=== PATIENT | female | born 1950 | race African-American/Black ===

== ENCOUNTER 2017-06-22 08:50 | Outpatient (CLI) | payer MEDICAID | END 2017-06-22 08:51 | disposition home or self-care (01) | LOC: BICULT 08:50 | PROVIDERS: ATTEND Internal Medicine Nephrology | DX: N18.9 Chronic kidney disease, unspecified (principal) | CPT/HCPCS: 76770 ==

== ENCOUNTER 2017-12-14 09:30 | Outpatient (CLI) | payer MEDICARE, OTHER | END 2017-12-14 09:31 | disposition home or self-care (01) | LOC: BICMAMMO 09:30 | PROVIDERS: ATTEND General Practice | DX: Z12.31 Encounter for screening mammogram for malignant neoplasm of breast (principal) | CPT/HCPCS: 77063; 77067 ==

== ENCOUNTER 2021-05-20 08:20 | Outpatient (CLI) | payer MEDICARE, MEDICAID | END 2021-05-20 08:21 | disposition home or self-care (01) | LOC: BICMAMMO 08:20 | PROVIDERS: ATTEND Family Medicine Sports Medicine | DX: Z12.31 Encounter for screening mammogram for malignant neoplasm of breast (principal); R92.1 Mammographic calcification found on diagnostic imaging of breast | CPT/HCPCS: 77063; 77067 ==

== ENCOUNTER 2021-05-27 09:38 | Outpatient (CLI) | payer MEDICARE, MEDICAID | END 2021-05-27 09:39 | disposition home or self-care (01) | LOC: BICMAMMO 09:38 | PROVIDERS: ATTEND Family Medicine Sports Medicine | DX: R92.1 Mammographic calcification found on diagnostic imaging of breast (principal) | CPT/HCPCS: 77065; G0279 ==

== ENCOUNTER 2021-06-03 13:35 | Outpatient (CLI) | payer MEDICARE, MEDICAID ==
[2021-06-03 15:28] LABS: Bilirubin Neg (Negative); Blood, Urine Negative (Negative); Clarity Clear (Clear); Glucose, Urine (Dipstick) >=1000 mg/dL (Negative); Ketone, Urine Negative (Negative); Leukocyte Negative (Negative); Nitrite Negative (Negative); Protein, Urine (Dipstick) 15 mg/dl (Neg-Trace); Urobilinogen Normal mg/dL (Less than 2); pH, Urine 6.5 (5.0-9.0)
[2021-06-03 15:29] LABS: Hemoglobin 12.1 g/dL (12.0-15.5); Mean Corpuscular HGB CONC 31.3 g/dL (32.0-36.0); Mean Corpuscular Hemoglobin 26.7 pg (27.0-33.0); Mean Corpuscular Volume 85.2 fl (81.6-98.3); Mean Platelet Volume 11.5 fl (7.4-10.4); Platelet Count 172 10x3/uL (150-450); RBC Distribution Width 13.9 % (11.5-14.5); Red Blood Cell (RBC) Count 4.53 10x6/uL (3.90-5.03)
[2021-06-03 15:39] LABS: MDiff Complete? YES; Manual Diff?? YES
[2021-06-03 15:46] LABS: INR-International Normal Ratio 0.9; Prothrombin Time 10.4 sec (9.5-12.1)
[2021-06-03 16:00] LABS: Anion Gap 14 mmol/L (10-20); BUN (Urea Nitrogen) 23 mg/dL (9.8-20.1); Calc. Creatinine Clearance 0 mL/min (70-130); Calcium 10.5 mg/dL (7.8-10.44); Carbon Dioxide 27 mmol/L (23-31); Chloride 108 mmol/L (98-107); Glucose 104 mg/dL (83-110); Potassium 4.9 mmol/L (3.5-5.1); Sodium 144 mmol/L (136-145)
[2021-06-03 17:07] LABS: Band 1 % (5-11); Eosinophils 1 % (0-10); Lymphocytes 42 % (21-51); Monocytes 17 % (0-10); Neutrophil 31 % (42-75); Reactive Lymphocytes 8 % (0-10)
[2021-06-04 12:05] LABS: SARS-CoV-2 PCR by NAA Not Detected (NotDetected)
== END 2021-06-03 13:36 | disposition home or self-care (01) ==
LOC: LABBT 13:35
PROVIDERS: ATTEND Orthopaedic Surgery
DX: Z01.818 Encounter for other preprocedural examination (principal); M17.12 Unilateral primary osteoarthritis, left knee; Z20.822 Contact with and (suspected) exposure to COVID-19
CPT/HCPCS: 80048; 81003; 85025; 85610; 87081; U0003; U0005; 93005; 93010

== ENCOUNTER 2021-06-08 08:11 | Inpatient (IN) | payer MEDICARE, MEDICAID ==
[2021-06-04 13:38] VITALS: BMI 36.7
[2021-06-08] MEDS ORDERED: Sodium Chloride 0.9% 100 ML ONE (09:45)
[2021-06-08] MEDS ORDERED: ceFAZolin 2 GM/DEX 5% 100 ML BAG ONE (09:45)
[2021-06-08] MEDS ORDERED: Tranexamic Acid 1,000 MG/10 ML VIAL ONE (09:45)
[2021-06-08] MEDS ORDERED: Vancomycin HCl 1.5 GM in Sodium Chloride 0.9% 250 ML 300 ML IVPB SCH (10:00)
[2021-06-08] MEDS ORDERED: Fentanyl 100 MCG/2 ML VIAL ONE ×6 (10:43→16:00)
[2021-06-08] MEDS ORDERED: Midazolam HCl 2 mg/2 ml Vial ONE (10:43)
[2021-06-08] MEDS ORDERED: Fentanyl 100 MCG/2 ML VIAL SLOW IVP PRN ×2 (11:10→11:22)
[2021-06-08] MEDS ORDERED: Zolpidem Tartrate 5 MG TAB PO PRN ×2 (11:10→11:30)
[2021-06-08] MEDS ORDERED: Promethazine HCl 25 MG/ML VIAL IM PRN ×3 (11:10→12:25)
[2021-06-08] MEDS ORDERED: HYDROcodone/Acetaminophen 10/325 mg Tablet PO PRN ×4 (11:10→11:30)
[2021-06-08] MEDS ORDERED: diphenhydrAMINE 25 MG CAP PO PRN (11:10)
[2021-06-08] MEDS ORDERED: Acetaminophen 325 MG TAB PO PRN (11:10)
[2021-06-08] MEDS ORDERED: Ondansetron PF 4 MG/2 ML Vial IVP PRN ×2 (11:10→11:30)
[2021-06-08] MEDS ORDERED: Bupivacaine PF 0.5% 30 ML VIAL ONE (11:12)
[2021-06-08] MEDS ORDERED: traMADol HCl 50 MG TAB PO PRN (11:30)
[2021-06-08] MEDS ORDERED: Ropivacaine 0.2% 550 ML 550 ML NERVE BLCK SCH (11:30)
[2021-06-08] MEDS ORDERED: PROPOFOL 200 MG/20 ML VIAL ONE (11:36)
[2021-06-08] MEDS ORDERED: Glycopyrrolate 0.2 MG/ML 5 ML SYRINGE ONE (11:36)
[2021-06-08] MEDS ORDERED: Bupivacaine HCl 0.5%/Epinephrine 1:200,000/PF 30 ml Vial ONE (11:36)
[2021-06-08] MEDS ORDERED: Rocuronium Bromide 10 MG/ML (10ML VIAL) ONE (11:36)
[2021-06-08] MEDS ORDERED: Ondansetron PF 4 MG/2 ML Vial ONE (11:36)
[2021-06-08] MEDS ORDERED: ePHEDrine 50 MG/ML VIAL ONE (11:36)
[2021-06-08] MEDS ORDERED: PHENYLEPHRINE-NS 100 MCG/ML 10 ML SYRINGE ONE (11:36)
[2021-06-08] MEDS ORDERED: HYDROmorphone 2 MG/ML VIAL ONE (11:58)
[2021-06-08] MEDS ORDERED: Ketorolac Tromethamine 30 MG/ML VIAL IVP SCH (12:00)
[2021-06-08] MEDS ORDERED: HYDROmorphone 2 MG/ML VIAL SLOW IVP PRN (12:25)
[2021-06-08] MEDS ORDERED: Promethazine HCl 25 MG/ML VIAL IVPB PRN (12:25)
[2021-06-08] MEDS ORDERED: Ondansetron HCl/PF 4 MG/2 ML Vial IVP PRN (12:25)
[2021-06-08] MEDS ORDERED: Albuterol Sulfate 2.5 mg/3 ml Neb NEB PRN (14:10)
[2021-06-08] MEDS: Sodium Chloride 0.9% 1,000 ML IV SCH ×2 (17:41→19:53)
[2021-06-08] MEDS: CEFAZOLIN 2 GM, Admixture Fee 1 EACH in Sodium Chloride 0.9% 100 ML IVPB SCH (18:20)
[2021-06-08] MEDS ORDERED: Acetaminophen 325 MG/10.15 ML UDCUP PO PRN (18:38)
[2021-06-08] MEDS ORDERED: Dextrose 5% in Water 1,000 ML IV PRN (19:27)
[2021-06-08] MEDS ORDERED: Dextrose 50% Abboject 50 ML SYRINGE SLOW IVP PRN (19:27)
[2021-06-08] MEDS ORDERED: Insulin Regular 300 UNITS/3 ML VIAL SC PRN (19:27)
[2021-06-08] MEDS: Aspirin 81 mg Enteric Coated Tablet PO SCH (19:51)
[2021-06-08] MEDS: Nicotine 14 MG PATCH TD SCH (19:51)
[2021-06-08] MEDS: Gabapentin 300 MG CAP PO SCH (19:52)
[2021-06-09] MEDS: CEFAZOLIN 2 GM, Admixture Fee 1 EACH in Sodium Chloride 0.9% 100 ML IVPB SCH (02:01)
[2021-06-09 04:26] LABS: Hemoglobin 10.5 g/dL (12.0-16.0); Mean Corpuscular HGB CONC 32.9 g/dL (32.0-36.0); Mean Corpuscular Hemoglobin 28.6 pg (27.0-31.0); Mean Corpuscular Volume 86.9 fL (78.0-98.0); Mean Platelet Volume 8.3 fL (7.4-10.4); Platelet Count 136 thou/uL (130-400); RBC Distribution Width 12.6 % (11.5-14.5); Red Blood Cell (RBC) Count 3.68 mill/uL (4.20-5.40)
[2021-06-09] MEDS: HumaLOG 300 UNITS/3 ML VIAL SC PRN ×2 (06:11→11:48)
[2021-06-09] MEDS: Sodium Chloride 0.9% 1,000 ML IV SCH ×2 (06:34→17:58)
[2021-06-09] MEDS: Lisinopril 20 MG TAB PO SCH (08:40)
[2021-06-09] MEDS: Amlodipine 5 MG TAB PO SCH (08:42)
[2021-06-09] MEDS: Allopurinol 300 MG TAB PO SCH (08:42)
[2021-06-09] MEDS: Gabapentin 300 MG CAP PO SCH ×2 (08:42→20:44)
[2021-06-09] MEDS: Cholecalciferol 1,000 UNITS (25 MCG) TAB PO SCH (08:43)
[2021-06-09] MEDS: Multivitamin W/ Minerals 1 TAB PO SCH (08:44)
[2021-06-09] MEDS: Ferrous Gluconate 324 MG TAB PO SCH ×2 (08:44→20:45)
[2021-06-09] MEDS: Senokot S 8.6-50 MG TAB PO SCH ×2 (08:44→20:45)
[2021-06-09] MEDS: Rosuvastatin 20 MG TAB PO SCH (08:44)
[2021-06-09] MEDS: Aspirin 81 mg Enteric Coated Tablet PO SCH ×2 (08:44→20:44)
[2021-06-09] MEDS ORDERED: Non-Formulary Item 1 EACH (Ferrous Sulfate [Ferrous Sulfate] 325 MG Tablet) PO SCH (09:00)
[2021-06-09] MEDS: Empagliflozin 10 MG TAB PO SCH (10:49)
[2021-06-09] MEDS: Stress 600 With Zinc 1 TAB PO SCH (10:49)
[2021-06-09] MEDS: Ketotifen Fumarate 0.025% Ophth Soln 5 ml Bottle EA EYE SCH ×2 (10:49→21:00)
[2021-06-09] MEDS: Polyethylene Glycol OPTH DROP 15 ML BOT EA EYE SCH (10:50)
[2021-06-09] MEDS: Nicotine 14 MG PATCH TD SCH (18:21)
[2021-06-09] MEDS: traMADol HCl 50 MG TAB PO PRN (20:44)
[2021-06-10] MEDS: Sodium Chloride 0.9% 1,000 ML IV SCH ×3 (03:17→23:29)
[2021-06-10 04:57] LABS: Hemoglobin 10.5 g/dL (12.0-16.0); Mean Corpuscular HGB CONC 33.2 g/dL (32.0-36.0); Mean Corpuscular Hemoglobin 28.7 pg (27.0-31.0); Mean Corpuscular Volume 86.5 fL (78.0-98.0); Mean Platelet Volume 8.6 fL (7.4-10.4); Platelet Count 131 thou/uL (130-400); RBC Distribution Width 12.8 % (11.5-14.5); Red Blood Cell (RBC) Count 3.67 mill/uL (4.20-5.40); White Blood Cell (WBC) Count 9.6 thou/uL (4.8-10.8)
[2021-06-10] MEDS: Senokot S 8.6-50 MG TAB PO SCH ×2 (08:36→20:18)
[2021-06-10] MEDS: Cholecalciferol 1,000 UNITS (25 MCG) TAB PO SCH (08:36)
[2021-06-10] MEDS: Allopurinol 300 MG TAB PO SCH (08:36)
[2021-06-10] MEDS: Multivitamin W/ Minerals 1 TAB PO SCH (08:37)
[2021-06-10] MEDS: Aspirin 81 mg Enteric Coated Tablet PO SCH ×2 (08:37→20:18)
[2021-06-10] MEDS: Lisinopril 20 MG TAB PO SCH (08:37)
[2021-06-10] MEDS: Amlodipine 5 MG TAB PO SCH (08:37)
[2021-06-10] MEDS: Rosuvastatin 20 MG TAB PO SCH (08:37)
[2021-06-10] MEDS: Gabapentin 300 MG CAP PO SCH ×2 (08:38→20:18)
[2021-06-10] MEDS: Ferrous Gluconate 324 MG TAB PO SCH ×2 (08:38→20:19)
[2021-06-10] MEDS: Ketotifen Fumarate 0.025% Ophth Soln 5 ml Bottle EA EYE SCH ×2 (08:39→20:19)
[2021-06-10] MEDS: Polyethylene Glycol OPTH DROP 15 ML BOT EA EYE SCH (08:39)
[2021-06-10] MEDS: traMADol HCl 50 MG TAB PO PRN (08:53)
[2021-06-10] MEDS: Empagliflozin 10 MG TAB PO SCH (12:22)
[2021-06-10] MEDS: Stress 600 With Zinc 1 TAB PO SCH (12:22)
[2021-06-10] MEDS: Nicotine 14 MG PATCH TD SCH (17:55)
[2021-06-11 05:59] LABS: Mean Corpuscular HGB CONC 33.2 g/dL (32.0-36.0); Mean Corpuscular Hemoglobin 29.1 pg (27.0-31.0); Mean Corpuscular Volume 87.8 fL (78.0-98.0); Mean Platelet Volume 8.4 fL (7.4-10.4); Platelet Count 126 thou/uL (130-400); RBC Distribution Width 12.6 % (11.5-14.5); Red Blood Cell (RBC) Count 3.42 mill/uL (4.20-5.40)
[2021-06-11] MEDS: Allopurinol 300 MG TAB PO SCH (08:47)
[2021-06-11] MEDS: Lisinopril 20 MG TAB PO SCH (08:47)
[2021-06-11] MEDS: Ferrous Gluconate 324 MG TAB PO SCH ×2 (08:47→20:43)
[2021-06-11] MEDS: Multivitamin W/ Minerals 1 TAB PO SCH (08:47)
[2021-06-11] MEDS: Cholecalciferol 1,000 UNITS (25 MCG) TAB PO SCH (08:47)
[2021-06-11] MEDS: Rosuvastatin 20 MG TAB PO SCH (08:47)
[2021-06-11] MEDS: Aspirin 81 mg Enteric Coated Tablet PO SCH ×2 (08:47→20:43)
[2021-06-11] MEDS: Empagliflozin 10 MG TAB PO SCH (08:47)
[2021-06-11] MEDS: Amlodipine 5 MG TAB PO SCH (08:47)
[2021-06-11] MEDS: Ketotifen Fumarate 0.025% Ophth Soln 5 ml Bottle EA EYE SCH ×2 (08:48→20:47)
[2021-06-11] MEDS: Stress 600 With Zinc 1 TAB PO SCH (08:48)
[2021-06-11] MEDS: Polyethylene Glycol OPTH DROP 15 ML BOT EA EYE SCH (08:48)
[2021-06-11] MEDS: Gabapentin 300 MG CAP PO SCH ×2 (08:48→20:43)
[2021-06-11] MEDS: Senokot S 8.6-50 MG TAB PO SCH ×2 (10:48→19:26)
[2021-06-11] MEDS: Sodium Chloride 0.9% 1,000 ML IV SCH ×2 (15:05→19:25)
[2021-06-11] MEDS: Nicotine 14 MG PATCH TD SCH (23:02)
[2021-06-12] MEDS: Sodium Chloride 0.9% 1,000 ML IV SCH ×2 (01:05→13:37)
[2021-06-12 06:30] LABS: Hemoglobin 9.7 g/dL (12.0-16.0); Mean Corpuscular HGB CONC 33.6 g/dL (32.0-36.0); Mean Corpuscular Hemoglobin 29.1 pg (27.0-31.0); Mean Corpuscular Volume 86.6 fL (78.0-98.0); Mean Platelet Volume 8.3 fL (7.4-10.4); Platelet Count 147 thou/uL (130-400); RBC Distribution Width 12.6 % (11.5-14.5); Red Blood Cell (RBC) Count 3.32 mill/uL (4.20-5.40); White Blood Cell (WBC) Count 7.1 thou/uL (4.8-10.8)
[2021-06-12] MEDS: Ferrous Gluconate 324 MG TAB PO SCH ×2 (09:33→20:32)
[2021-06-12] MEDS: Senokot S 8.6-50 MG TAB PO SCH ×2 (09:33→20:33)
[2021-06-12] MEDS: Multivitamin W/ Minerals 1 TAB PO SCH (09:33)
[2021-06-12] MEDS: Rosuvastatin 20 MG TAB PO SCH (09:34)
[2021-06-12] MEDS: Amlodipine 5 MG TAB PO SCH (09:34)
[2021-06-12] MEDS: Aspirin 81 mg Enteric Coated Tablet PO SCH ×2 (09:34→20:32)
[2021-06-12] MEDS: Cholecalciferol 1,000 UNITS (25 MCG) TAB PO SCH (09:34)
[2021-06-12] MEDS: Lisinopril 20 MG TAB PO SCH (09:34)
[2021-06-12] MEDS: Allopurinol 300 MG TAB PO SCH (09:34)
[2021-06-12] MEDS: Gabapentin 300 MG CAP PO SCH ×2 (09:35→20:32)
[2021-06-12] MEDS: Ketotifen Fumarate 0.025% Ophth Soln 5 ml Bottle EA EYE SCH ×2 (09:37→20:32)
[2021-06-12] MEDS: Polyethylene Glycol OPTH DROP 15 ML BOT EA EYE SCH (09:38)
[2021-06-12] MEDS: Stress 600 With Zinc 1 TAB PO SCH (10:44)
[2021-06-12] MEDS: Empagliflozin 10 MG TAB PO SCH (10:45)
[2021-06-12] MEDS: Nicotine 14 MG PATCH TD SCH (18:16)
[2021-06-13] MEDS: Sodium Chloride 0.9% 1,000 ML IV SCH ×3 (04:56→19:11)
[2021-06-13] MEDS: Polyethylene Glycol OPTH DROP 15 ML BOT EA EYE SCH (09:19)
[2021-06-13] MEDS: Gabapentin 300 MG CAP PO SCH ×2 (09:20→20:33)
[2021-06-13] MEDS: Rosuvastatin 20 MG TAB PO SCH (09:20)
[2021-06-13] MEDS: Aspirin 81 mg Enteric Coated Tablet PO SCH ×2 (09:20→20:33)
[2021-06-13] MEDS: Multivitamin W/ Minerals 1 TAB PO SCH (09:20)
[2021-06-13] MEDS: Senokot S 8.6-50 MG TAB PO SCH ×2 (09:20→20:33)
[2021-06-13] MEDS: Allopurinol 300 MG TAB PO SCH (09:20)
[2021-06-13] MEDS: Amlodipine 5 MG TAB PO SCH (09:21)
[2021-06-13] MEDS: Lisinopril 20 MG TAB PO SCH (09:21)
[2021-06-13] MEDS: Cholecalciferol 1,000 UNITS (25 MCG) TAB PO SCH (09:21)
[2021-06-13] MEDS: Ferrous Gluconate 324 MG TAB PO SCH ×2 (09:21→20:33)
[2021-06-13] MEDS: Stress 600 With Zinc 1 TAB PO SCH (09:31)
[2021-06-13] MEDS: Ketotifen Fumarate 0.025% Ophth Soln 5 ml Bottle EA EYE SCH ×2 (09:31→19:12)
[2021-06-13] MEDS: Empagliflozin 10 MG TAB PO SCH (09:31)
[2021-06-13 14:47] LABS: Bacteria/HPF 1+ HPF (None Seen); Squamous Epithelial None Seen HPF (0-3); WBC/HPF 21-50 HPF (0-3)
[2021-06-13] MEDS: Nicotine 14 MG PATCH TD SCH (18:04)
[2021-06-13] MEDS: Sulfameth/Trimethoprim DS 800-160mg TAB PO SCH (20:33)
[2021-06-14] MEDS: Sodium Chloride 0.9% 1,000 ML IV SCH (03:21)
[2021-06-14] MEDS: Empagliflozin 10 MG TAB PO SCH (08:12)
[2021-06-14] MEDS: Stress 600 With Zinc 1 TAB PO SCH (08:12)
[2021-06-14] MEDS: Gabapentin 300 MG CAP PO SCH (08:12)
[2021-06-14] MEDS: Aspirin 81 mg Enteric Coated Tablet PO SCH (08:12)
[2021-06-14] MEDS: Rosuvastatin 20 MG TAB PO SCH (08:13)
[2021-06-14] MEDS: Sulfameth/Trimethoprim DS 800-160mg TAB PO SCH (08:13)
[2021-06-14] MEDS: Ferrous Gluconate 324 MG TAB PO SCH (08:13)
[2021-06-14] MEDS: Cholecalciferol 1,000 UNITS (25 MCG) TAB PO SCH (08:13)
[2021-06-14] MEDS: Multivitamin W/ Minerals 1 TAB PO SCH (08:13)
[2021-06-14] MEDS: Allopurinol 300 MG TAB PO SCH (08:13)
[2021-06-14] MEDS: Senokot S 8.6-50 MG TAB PO SCH (08:16)
[2021-06-14] MEDS: Polyethylene Glycol OPTH DROP 15 ML BOT EA EYE SCH (08:16)
[2021-06-14] MEDS: Amlodipine 5 MG TAB PO SCH (10:10)
[2021-06-14] MEDS: Lisinopril 20 MG TAB PO SCH (10:10)
[2021-06-14 16:41] VITALS: BP 101/67; TEMP 98.8
== END 2021-06-14 16:30 | disposition home health service (06) | DRG 470 ==
LOC: SDC 08:11 → SURG A 11:10
PROVIDERS: ADMIT Orthopaedic Surgery; ATTEND Hospitalist
PROC: 0SRD0J9 Replacement of Left Knee Joint with Synthetic Substitute, Cemented, Open Approach (ICD-10-PCS; principal; 2021-06-08)
DX: M17.12 Unilateral primary osteoarthritis, left knee (principal); E11.42 Type 2 diabetes mellitus with diabetic polyneuropathy; M10.9 Gout, unspecified; I10 Essential (primary) hypertension; E78.5 Hyperlipidemia, unspecified; J45.909 Unspecified asthma, uncomplicated; F17.290 Nicotine dependence, other tobacco product, uncomplicated; Z90.710 Acquired absence of both cervix and uterus; Z88.8 Allergy status to other drugs, medicaments and biological substances; Z79.899 Other long term (current) drug therapy; Z98.890 Other specified postprocedural states; Z79.51 Long term (current) use of inhaled steroids; Z71.6 Tobacco abuse counseling
CPT/HCPCS: 36415; 36416; 81015; 85027; A4306; C1713; C1776; J0690; J1170; J1815; J2250; J2405; J2704; J2795; J3010; J3370; J3490; J7050; S0020

== ENCOUNTER 2021-08-30 19:30 | Outpatient (CLI) | payer MEDICARE, MEDICAID | END 2021-08-30 19:31 | disposition home or self-care (01) | LOC: SLEEPLAB 19:30 | PROVIDERS: ATTEND Family Medicine Sports Medicine | DX: G47.33 Obstructive sleep apnea (adult) (pediatric) (principal); E11.9 Type 2 diabetes mellitus without complications; I10 Essential (primary) hypertension; E78.00 Pure hypercholesterolemia, unspecified; J45.909 Unspecified asthma, uncomplicated; M10.9 Gout, unspecified; M79.0 Rheumatism, unspecified; G47.30 Sleep apnea, unspecified; G47.61 Periodic limb movement disorder | CPT/HCPCS: 95810 ==

== ENCOUNTER 2021-10-13 19:00 | Outpatient (CLI) | payer MEDICARE, MEDICAID | END 2021-10-13 19:01 | disposition home or self-care (01) | LOC: SLEEPLAB 19:00 | PROVIDERS: ATTEND Family Medicine Sports Medicine | DX: G47.33 Obstructive sleep apnea (adult) (pediatric) (principal); G47.10 Hypersomnia, unspecified; E66.9 Obesity, unspecified; Z68.34 Body mass index [BMI] 34.0-34.9, adult | CPT/HCPCS: 95811 ==